=== PATIENT | female | born 1950 | race American Indian/Alaskan Native ===

== ENCOUNTER 2017-01-19 14:05 | Inpatient (IN) | payer MEDICARE ==
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
[2017-01-19 16:01] LABS: Basophils % (Auto) 0.9 % (0.0-1.8); Eosinophils % (Auto) 1.8 % (0.0-4.3); Hematocrit 42.2 % (30.3-42.9); Hemoglobin 13.7 gm/dl (10.1-14.3); Mean Corpuscular HGB Conc 33 % (30-34); Mean Corpuscular Hemoglobin 28 pg (28-32); Mean Corpuscular Volume 87 fl (79-97); Platelet Count 355 K/mm3 (140-440); Red Blood Count 4.87 M/mm3 (3.65-5.03); Red Cell Distribution Width 14.7 % (13.2-15.2); White Blood Count 9.4 K/mm3 (4.5-11.0)
[2017-01-19 16:23] LABS: Creatine Kinase MB 3.2 ng/mL (0.0-4.0)
[2017-01-19 16:25] LABS: Albumin 4.3 g/dL (3.9-5); Albumin/Globulin Ratio 1.3 %; BUN/Creatinine Ratio 15.83; Bilirubin,Total 0.4 mg/dL (0.1-1.2); Calcium 10.1 mg/dL (8.4-10.2); Chloride 103.1 mmol/L (98-107); Potassium 4.1 mmol/L (3.6-5.0); Total Protein 7.5 g/dL (6.3-8.2)
--- NOTE | 2017-01-19 16:29 | Cat Scan Report ---
CT head without contrast: Syncope. No prior exam for comparison. Axial images demonstrate an area of diminished attenuation adjacent to the lateral left ventricle in the frontotemporal region. There is no mass effect and no hemorrhage. There is a small lacunar infarct in the left putamen. The remainder of the cerebral findings are generally unremarkable except for minimal peripheral atrophy consistent with advancing age. No extracerebral collection. The visualized bony structures are normal. There is a large cyst or polyp in the partially imaged left maxillary sinus. A small osteoma noted in the left frontal sinus. Impressions: Left cerebral infarcts that are most likely chronic. Left maxillary cyst/polyp.
[2017-01-19 16:34] LABS: Lactate Dehydrogenase 162 units/L (91-180)
[2017-01-19 16:57] LABS: Bacteria,Urine 2+ /HPF (Negative); Bilirubin,Urine NEG (Negative); Blood,Urine NEG (Negative); Ketones,Urine NEG (Negative); Leukocyte Esterase,Urine NEG (Negative); Mucus,Urine FEW /HPF; Nitrite,Urine POS (Negative); Urobilinogen,Urine < 2.0 mg/dL (<2.0)
[2017-01-19] MEDS ORDERED: SODIUM CHLORIDE FLUSH SYRINGE 10 ML IV PRN (17:45)
[2017-01-19] MEDS ORDERED: TYLENOL PO PRN (17:45)
[2017-01-19] MEDS ORDERED: PROVENTIL IH PRN (17:45)
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
[2017-01-19] MEDS ORDERED: BABY ASPIRIN ONE (17:49)
[2017-01-19] MEDS ORDERED: BABY ASPIRIN PO ONE (17:50)
--- NOTE | 2017-01-19 17:53 | Admit Criteria Form ---
Admission Criteria Documentation: SYNCOPE Clinical Indications for Admission to Inpatient Care ( Place 'X' for any and all applicable criteria): Admission is indicated for syncope and ANY ONE of the following (1)(2)(3)(4)(5) (6)(7) : [X ]I. Inpatient admission required rather than observation care (Also use Syncope: Observation Care Criteria as appropriate) because of ANY ONE of the following: [ ]a) Hemodynamic instability that is severe or persistent [ ]b) Cardiac arrhythmias of immediate concern identified or strongly suspected (eg, needs electrophysiologic study) [ ]c) Acute coronary syndrome identified (Also use Myocardial Infarction or Angina Criteria form ) [ ]d) Structural cardiac disorder (eg, aortic stenosis) suspected as cause that requires immediate correction [ ]e) Respiratory symptoms (eg, dyspnea, tachypnea) that are severe or persistent [ ]f) Neurologic signs or symptoms that are severe or persistent ( eg, stroke, seizures, altered mental status) [ ]g) Severe electrolyte abnormalities requiring inpatient care [ ]h) Supplemental oxygen or respiratory treatment for over 24 hrs that are performable only in acute inpatient setting [ ]i) IV fluid to replace significant ongoing (eg, for over 24 hrs ) losses (>3 L/m2 per day) [ ]j) Continuous intravenous infusion of anticoagulation, platelet inhibitor, vasoactive, or antiarrhythmic medication(15)(16) [ ]k) Pulmonary artery catheter monitoring [ ]l) Temporary pacemaker placement(17) [ ]m) Emergent cardioversion(18) [X ]n) Other conditions, treatment or monitoring requiring inpatient admission [ ]II. Suspicion of imminently dangerous cause (eg, rare causes like pericardial tamponade, pulmonary embolism) [ ]III. Syncope causing severe injury requiring hospitalization Extended stay beyond goal length of stay may be needed for(28) [ ]a) Dangerous arrhythmia(15)(23)(27)(29) [ ]b) Myocardial ischemia [ ]c) Seizure disorder [ ]d) Syncope-related injuries The original [employer] content created by [employer] has been revised. The portions of the content which have been revised are identified through the use of italic text or in bold, and [employer] has neither reviewed nor approved the modified material. All other unmodified content is copyright [email or web address]. Please see references footnoted in the original [facility] edition 2016 Admission Criteria Met: Yes
[2017-01-19 18:24] LABS: Basophils % (Auto) 0.8 % (0.0-1.8); Eosinophils % (Auto) 1.8 % (0.0-4.3); Hemoglobin 13.4 gm/dl (10.1-14.3); Mean Corpuscular HGB Conc 33 % (30-34); Mean Corpuscular Hemoglobin 28 pg (28-32); Mean Corpuscular Volume 87 fl (79-97); Platelet Count 340 K/mm3 (140-440); Red Blood Count 4.73 M/mm3 (3.65-5.03); Red Cell Distribution Width 14.6 % (13.2-15.2); White Blood Count 9.4 K/mm3 (4.5-11.0)
[2017-01-19 18:41] LABS: Anion Gap 18 mmol/L; Blood Urea Nitrogen 19 mg/dL (7-17); Calcium 10.1 mg/dL (8.4-10.2); Carbon Dioxide 26 mmol/L (22-30); Glucose 181 mg/dL (65-100); Potassium 4.3 mmol/L (3.6-5.0); Sodium 143 mmol/L (137-145)
[2017-01-19] MEDS ORDERED: MORPHINE IV PRN (21:44)
[2017-01-19] MEDS ORDERED: APRESOLINE IV PRN (21:46)
--- NOTE | 2017-01-20 08:07 | XRay Report ---
CHEST TWO VIEWS: 01/19/17 16:35 CLINICAL: Syncope. COMPARISON: none FINDINGS: The heart is large. Mild prominence of the central pulmonary vessels and bilateral calcified hilar granulomata. The lungs are clear. The bones and soft tissues are normal. IMPRESSION: Cardiomegaly and pulmonary venous hypertension.No pulmonary edema.
[2017-01-20] MEDS ORDERED: LEXISCAN IV ONE ×2 (09:21→09:23)
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
[2017-01-20 17:55] VITALS: BP 123/64
--- NOTE | 2017-01-21 05:59 | Treadmill Report ---
THALLIUM STRESS TEST LEFT VENTRICLE: Left ventricular chamber size is within normal spread. Perfusion study demonstrates homogeneous uptake of the tracer in all segments, no significant defects identified. Gated analysis demonstrates normal left ventricular systolic function, ejection fraction of 70%. CONCLUSION: Normal myocardial perfusion study. JOB# [id number] CA/NTS
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
--- NOTE | 2017-01-22 16:47 | Vascular Lab Report ---
CAROTID DUPLEX STUDY: RIGHT PSVEDV CCA PROX:48 5 CCA DIST:35 6 ICA PROX:32 5 ICA MID:[id number] ICA DIST:5211 ECA: 57 VERT: 35 7 LEFT PSVEDV CCA PROX:65 5 CCA DIST:44 7 ICA PROX:28 7 ICA MID:3812 ICA DIST:5114 ECA: 65 VERT: 32 8 REASON FOR EXAM: Carotid artery stenosis/syncope. COMMENTS ON THE RIGHT: Doppler frequency analysis is consistent with 16 to 49 percent diameter reduction of the internal carotid artery. Minimal amount of plaque is seen. The common carotid artery is patent. The external carotid artery is patent. The vertebral artery has antegrade flow. COMMENTS ON THE LEFT: Doppler frequency analysis is consistent with 16 to 49 percent diameter reduction of the internal carotid artery. Minimal amount of plaque is seen. The common carotid artery is patent. The external carotid artery is patent. The vertebral artery has antegrade flow. IMPRESSION: Less than 50% diameter reduction in the internal carotid arteries bilaterally. Consider repeat carotid artery duplex in 12 months.
== END 2017-01-20 18:04 | disposition home or self-care (01) | DRG 312 ==
LOC: ED 14:05 → 4A 17:45
PROVIDERS: ADMIT Internal Medicine; ATTEND Internal Medicine
DX: R55 Syncope and collapse (principal); I25.10 Atherosclerotic heart disease of native coronary artery without angina pectoris; F17.210 Nicotine dependence, cigarettes, uncomplicated; I10 Essential (primary) hypertension; E78.5 Hyperlipidemia, unspecified; I25.2 Old myocardial infarction; Z95.5 Presence of coronary angioplasty implant and graft; Z82.49 Family history of ischemic heart disease and other diseases of the circulatory system; Z79.899 Other long term (current) drug therapy
CPT/HCPCS: 36415; 70450; 71020; 78452; 80048; 80053; 81001; 82550; 82553; 82962; 83615; 83735; 84484; 85025; 85379; 86850; 86900; 86901; 93005; 93010; 93017; 93306; 93880; 99406; A9502; J2785